=== PATIENT | female | born 1980 | race Hispanic/Latino ===

== ENCOUNTER 2019-09-05 00:14 | Emergency (ER) | payer OTHER ==
[2019-09-05 00:58] LABS: Absolute Lymphocytes (CBC) 3.5 K/uL (0.7-4.9); Basophils % 0.5 % (0-1.3); Hematocrit 41.6 % (36.0-45.0); Lymphocytes % 34.4 % (15.3-44.8); MPV 8.2 fL (7.6-11.3); RBC Red Blood Cell Count 4.94 M/uL (3.86-4.86)
[2019-09-05 01:15] LABS: ALT/SGPT 20 U/L (12-78); AST/SGOT 12 U/L (15-37); Albumin 3.7 g/dL (3.4-5.0); Alkaline Phosphatase 67 U/L (45-117); BUN Blood Urea Nitrogen 14 mg/dL (7-18); Bicarbonate 23 mmol/L (21-32); Bilirubin Direct < 0.1 mg/dL (0-0.2); Bilirubin Total 0.2 mg/dL (0.2-1.0); Glucose Level 98 mg/dL (74-106); Lipase 130 U/L (73-393); Potassium 3.7 mmol/L (3.5-5.1); Protein, Total 7.8 g/dL (6.4-8.2); Sodium Level 138 mmol/L (136-145)
[2019-09-05] MEDS ORDERED: MAGNE/ALUM HYDROXD 30 ML UCUP ONE (01:32)
[2019-09-05] MEDS ORDERED: PANTOPRAZOLE 40 MG INJ ONE (01:33)
[2019-09-05] MEDS ORDERED: LIDOCAINE VISCOUS 2% SOLN 15 ML UDC ONE (01:33)
--- NOTE | 2019-09-05 01:46 | EDPHYS ---
Physician Documentation [facility] Name: Joanna Tidwell Age: 39 yrs Sex: Female : 1980 Arrival Date: 09/05/2019 Time: 00:17 Bed 8 Private MD: ED Physician Vivek Arechiga HPI: 09/05 01:38 This 39 yrs old Female presents to ER via Ambulatory with complaints of kb Abdominal Pain. 01:38 The patient presents with abdominal pain in the epigastric area. Onset: The kb symptoms/episode began/occurred today. The symptoms do not radiate. Associated signs and symptoms: none. The symptoms are described as constant. Modifying factors: The symptoms are alleviated by nothing, the symptoms are aggravated by spicy food. Severity of pain: At its worst the pain was moderate in the emergency department the pain is unchanged. The patient has experienced similar episodes in the past, several times. The patient has been recently seen by a physician:. Pt reports she has had epigastric pain that started today after eating salsa at [employer]. Reports she has had this pain multiple times in the past. Recently completed treatment for H. Pylori (on Sunday). States the pain has been less frequent since she started the medication, but she hasn't been eating at night and has been staying away from spicy foods until today. . 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 - Social history:: Smoking status: Patient denies any tobacco usage or history of. ROS: 01:37 Constitutional: Negative for fever, chills, and weight loss, Neck: Negative for injury, kb pain, and swelling, Cardiovascular: Negative for chest pain, palpitations, and edema, Respiratory: Negative for shortness of breath, cough, wheezing, and pleuritic chest pain, Back: Negative for injury and pain, MS/Extremity: Negative for injury and deformity, Skin: Negative for injury, rash, and discoloration, Neuro: Negative for headache, weakness, numbness, tingling, and seizure. 01:37 Abdomen/GI: Positive for abdominal pain, Negative for nausea, vomiting, and diarrhea. Exam: 01:37 Constitutional: This is a well developed, well nourished patient who is awake, alert, kb and in no acute distress. Head/Face: Normocephalic, atraumatic. Neck: Trachea midline, no thyromegaly or masses palpated, and no cervical lymphadenopathy. Supple, full range of motion without nuchal rigidity, or vertebral point tenderness. No Meningismus. Chest/axilla: Normal chest wall appearance and motion. Nontender with no deformity. No lesions are appreciated. Cardiovascular: Regular rate and rhythm with a normal S1 and S2. No gallops, murmurs, or rubs. Normal PMI, no JVD. No pulse deficits. Respiratory: Lungs have equal breath sounds bilaterally, clear to auscultation and percussion. No rales, rhonchi or wheezes noted. No increased work of breathing, no retractions or nasal flaring. Abdomen/GI: Soft, non-tender, with normal bowel sounds. No distension or tympany. No guarding or rebound. No evidence of tenderness throughout. Skin: Warm, dry with normal turgor. Normal color with no rashes, no lesions, and no evidence of cellulitis. MS/ Extremity: Pulses equal, no cyanosis. Neurovascular intact. Full, normal range of motion. Neuro: Awake and alert, GCS 15, oriented to person, place, time, and situation. Cranial nerves II-XII grossly intact. Motor strength 5/5 in all extremities. Sensory grossly intact. Cerebellar exam normal. Normal gait. Vital Signs: 00:23 BP 112 / 76; Pulse 92; Resp 18 S; Pulse Ox 99% on R/A; Weight 54.43 kg (R); Height 5 sg ft. 0 in. (152.40 cm) (R); Pain 6/10; 01:00 BP 141 / 92; Pulse 81; Resp 17; Pulse Ox 97% on R/A; rv 02:00 BP 122 / 89; Pulse 86; Resp 16; Pulse Ox 97% on R/A; Pain 0/10; rv 02:04 Pain 0/10; rv 02:45 BP 105 / 70; Pulse 75; Resp 16; Temp 97.6; Pulse Ox 99% ; Pain 4/10; rr5 03:20 BP 110 / 69; Pulse 70; Resp 17; Pulse Ox 98% ; Pain 0/10; rr5 04:00 BP 115 / 76; Pulse 69; Resp 16; Temp 97.5; Pulse Ox 99% ; Pain 0/10; rr5 00:23 Body Mass Index 23.44 (54.43 kg, 152.40 cm) sg MDM: 00:17 Patient medically screened. kb 01:37 Data reviewed: vital signs, nurses notes. Data interpreted: Pulse oximetry: on room air kb is 99 %. Interpretation: normal. 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 09/05 00:39 Order name: Basic Metabolic Panel; Complete Time: 01:22 kb 09/05 00:39 Order name: CBC with Diff; Complete Time: 01:08 kb 09/05 00:39 Order name: Hepatic Function; Complete Time: 01:22 kb 09/05 00:39 Order name: Lipase; Complete Time: 01:22 kb 09/05 02:58 Order name: Urine Dipstick--Ancillary (enter results); Complete Time: 03:50 mw2 09/05 02:58 Order name: Urine --Ancillary (enter results); Complete Time: 03:50 mw2 09/05 00:39 Order name: IV Saline Lock; Complete Time: 00:53 kb 09/05 02:41 Order name: CT Abd/Pelvis - IV Contrast Only rr5 09/05 00:39 Order name: Labs collected and sent; Complete Time: 00:53 kb 09/05 02:51 Order name: Urine Dipstick-Ancillary (obtain specimen); Complete Time: 02:52 rr5 09/05 02:51 Order name: Urine Test (obtain specimen); Complete Time: 02:51 rr5 Administered Medications: 01:33 Drug: GI Cocktail without - (Maalox Suspension 30 ml, Lidocaine Liquid 2 % 15 rr5 ml) Route: PO; 02:04 Follow up: Response: No adverse reaction rv 01:33 Drug: ProTONIX 40 mg Route: IVP; Site: right antecubital; rr5 02:04 Follow up: Response: No adverse reaction rv 01:50 Drug: morphine 4 mg {Note: RASS 0.} Route: IVP; Site: right antecubital; rv 02:04 Follow up: Pain 0/10 Adult; Response: No adverse reaction; Marked relief of symptoms; rv Pain is decreased; RASS: Alert and Calm (0) 01:50 Drug: Zofran (Ondansetron) 4 mg Route: IVP; Site: right antecubital; rv 02:05 Follow up: Response: No adverse reaction rv 02:51 Drug: NS 0.9% 500 ml Route: IV; Rate: bolus; Site: left antecubital; rr5 03:30 Follow up: Response: No adverse reaction; IV Status: Completed infusion; IV Intake: rr5 500ml 02:51 Drug: TORadol 30 mg Route: IVP; Site: left antecubital; rr5 03:55 Follow up: Response: No adverse reaction; Marked relief of symptoms rr5 Disposition: 04:04 Co-signature as Attending Physician, Vivek Arechiga MD. lucero Disposition: 09/05/19 01:45 Discharged to Home. Impression: Epigastric pain. - Condition is Stable. - Discharge Instructions: Gastroesophageal Reflux Disease, Adult, [id number]. - Medication Reconciliation Form, Thank You Letter, Antibiotic Education, Prescription Opioid Use form. - Follow up: Emergency Department; When: As needed; Reason: Worsening of condition. Follow up: Private Physician; When: 2 - 3 days; Reason: Recheck today's complaints, Continuance of care, Re-evaluation by your physician. Signatures: Dispatcher [employer] Bernadine Matthews, MERCHANDISING LEAD-C MERCHANDISING LEAD-Colby Mueller RN Vivek Garcia MD MD pkl Spencer Scott RN RN Tony Kyle RN RN rr5 Corrections: (The following items were deleted from the chart) 02:06 01:45 09/05/2019 01:45 Discharged to Home. Impression: Epigastric pain. Condition is rv Stable. Forms are Medication Reconciliation Form, Thank You Letter, Antibiotic Education, Prescription Opioid Use. Follow up: Emergency Department; When: As needed; Reason: Worsening of condition. Follow up: Private Physician; When: 2 - 3 days; Reason: Recheck today's complaints, Continuance of care, Re-evaluation by your physician. kb 04:02 02:06 09/05/2019 01:45 Discharged to Home. Impression: Epigastric pain. Condition is rr5 Stable. Discharge Instructions: Gastroesophageal Reflux Disease, Adult, [id number]. Forms are Medication Reconciliation Form, Thank You Letter, Antibiotic Education, Prescription Opioid Use. Follow up: Emergency Department; When: As needed; Reason: Worsening of condition. Follow up: Private Physician; When: 2 - 3 days; Reason: Recheck today's complaints, Continuance of care, Re-evaluation by your physician. rv
--- NOTE | 2019-09-05 01:46 | ER ---
Nurse's Notes [facility] Name: Joanna Tidwell Age: 39 yrs Sex: Female : 1980 Arrival Date: 09/05/2019 Time: 00:17 Bed 8 Private MD: Diagnosis: Epigastric pain Presentation: 09/05 00:23 Chief complaint: Patient states: I just finished my abx of Clarithromycin and sg Amoxicillin for H.Pylori treatment, today I started having the pain in my epigastric area, denies N/V/D/Fever, reports having [employer] for lunch with salsa and a coffee this morning but nothing to eat or drink since lunch time, pt states able to hold down fluids and food at this time, just reports a decrease in appetite. Coronavirus screen: The patient has NOT traveled to [place] in the past 14 days. The patient has NOT had contact with known and/or suspected case of Coronavirus. Ebola Screen: Patient negative for fever greater than or equal to 101.5 degrees Fahrenheit, and additional compatible Ebola Virus Disease symptoms Patient denies exposure to infectious person. Patient denies travel to an Ebola-affected area in the 21 days before illness onset. No symptoms or risks identified at this time. Initial Sepsis Screen: Does the patient meet any 2 criteria? No. Patient's initial sepsis screen is negative. Does the patient have a suspected source of infection? Yes: Acute abdominal pain. Risk Assessment: Do you want to hurt yourself or someone else? Patient reports no desire to harm self or others. 00:23 Method Of Arrival: Ambulatory sg 00:23 Acuity: ABRAHAN 3 sg 00:30 Onset of symptoms was September 04, 2019. 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 - Social history:: Smoking status: Patient denies any tobacco usage or history of. Screenin:00 Abuse screen: Denies threats or abuse. Denies injuries from another. Nutritional rr5 screening: No deficits noted. Tuberculosis screening: No symptoms or risk factors identified. Fall Risk IV access (20 points). Total Crespo Fall Scale indicates No Risk (0-24 pts). Assessment: 00:30 General: Appears in no apparent distress. uncomfortable, Behavior is calm, cooperative, rr5 appropriate for age. 00:30 Pain: Complains of pain in abdomen Pain does not radiate. Pain currently is 7 out of 10 rr5 on a pain scale. Quality of pain is described as aching, Pain began gradually, Is intermittent. Neuro: Level of Consciousness is awake, alert, obeys commands, Oriented to person, place, time, situation. Cardiovascular: Capillary refill < 3 seconds Patient's skin is warm and dry. Respiratory: Airway is patent Respiratory effort is even, unlabored, Respiratory pattern is regular, symmetrical. GI: Abdomen is flat, Bowel sounds present X 4 quads. Abd is non tender Reports lower abdominal pain, upper abdominal pain. : No signs and/or symptoms were reported regarding the genitourinary system. EENT: No signs and/or symptoms were reported regarding the EENT system. Derm: Skin is intact, is healthy with good turgor, Skin temperature is warm. Musculoskeletal: Circulation, motion, and sensation intact. Capillary refill < 3 seconds. 02:00 Reassessment: Patient appears in no apparent distress at this time. Patient is alert, rr5 oriented x 3, equal unlabored respirations, skin warm/dry/pink. discharge instruction given and explained without complaints made. Patient denies pain at this time. Patient states feeling better. Patient states symptoms have improved. 02:26 Reassessment: Patient appears in no apparent distress at this time. patient came back rr5 complaining the pain came back. informed with order made and carried out. 03:17 Reassessment: Patient appears in no apparent distress at this time. Patient is alert, rr5 oriented x 3, equal unlabored respirations, skin warm/dry/pink. awaiting for CT result. 03:38 Reassessment: Patient appears in no apparent distress at this time. Patient is alert, rr5 oriented x 3, equal unlabored respirations, skin warm/dry/pink. Patient denies pain at this time. Patient states feeling better. Patient states symptoms have improved. 04:01 Reassessment: Patient appears in no apparent distress at this time. Patient is alert, rr5 oriented x 3, equal unlabored respirations, skin warm/dry/pink. ED provider at bedside explained the CT result and advised to follow up to her PCP and ultrasound. verbalized understanding. Patient denies pain at this time. Patient states feeling better. Patient states symptoms have improved. Vital Signs: 00:23 BP 112 / 76; Pulse 92; Resp 18 S; Pulse Ox 99% on R/A; Weight 54.43 kg (R); Height 5 sg ft. 0 in. (152.40 cm) (R); Pain 6/10; 01:00 BP 141 / 92; Pulse 81; Resp 17; Pulse Ox 97% on R/A; rv 02:00 BP 122 / 89; Pulse 86; Resp 16; Pulse Ox 97% on R/A; Pain 0/10; rv 02:04 Pain 0/10; rv 02:45 BP 105 / 70; Pulse 75; Resp 16; Temp 97.6; Pulse Ox 99% ; Pain 4/10; rr5 03:20 BP 110 / 69; Pulse 70; Resp 17; Pulse Ox 98% ; Pain 0/10; rr5 04:00 BP 115 / 76; Pulse 69; Resp 16; Temp 97.5; Pulse Ox 99% ; Pain 0/10; rr5 00:23 Body Mass Index 23.44 (54.43 kg, 152.40 cm) ED Course: 00:17 Patient arrived in ED. ag3 00:17 Bernadine Gary FNP-C is PHCP. kb 00:17 Vivek Arechiga MD is Attending Physician. kb 00:26 Triage completed. sg 00:26 Arm band placed on. EKG completed in triage. Results shown to MD. sg 00:30 Patient has correct armband on for positive identification. Bed in low position. Call rr5 light in reach. 00:36 Tony Bear, KASSIE is Primary Nurse. rr5 00:50 Initial lab(s) drawn, by me, sent to lab. Inserted saline lock: 22 gauge in right sg antecubital area, using aseptic technique. Blood collected. 02:00 No provider procedures requiring assistance completed. IV discontinued, intact, rr5 bleeding controlled, No redness/swelling at site. Pressure dressing applied. 02:14 PHCP role handed off by Abdirahman, Bernadine, BOILER OPERATOR HELPER-C rv 02:14 Primary Nurse role handed off by Tony Bear, RN rv 02:21 Tony Bear, RN is Primary Nurse. rr5 02:40 Inserted saline lock: 20 gauge in left antecubital area, using aseptic technique. rr5 03:19 CT Abd/Pelvis - IV Contrast Only In Process Unspecified. EDMS 04:02 IV discontinued, intact, bleeding controlled, No redness/swelling at site. Pressure rr5 dressing applied. Administered Medications: 01:33 Drug: GI Cocktail without - (Maalox Suspension 30 ml, Lidocaine Liquid 2 % 15 rr5 ml) Route: PO; 02:04 Follow up: Response: No adverse reaction rv 01:33 Drug: ProTONIX 40 mg Route: IVP; Site: right antecubital; rr5 02:04 Follow up: Response: No adverse reaction rv 01:50 Drug: morphine 4 mg {Note: RASS 0.} Route: IVP; Site: right antecubital; rv 02:04 Follow up: Pain 0/10 Adult; Response: No adverse reaction; Marked relief of symptoms; rv Pain is decreased; RASS: Alert and Calm (0) 01:50 Drug: Zofran (Ondansetron) 4 mg Route: IVP; Site: right antecubital; rv 02:05 Follow up: Response: No adverse reaction rv 02:51 Drug: NS 0.9% 500 ml Route: IV; Rate: bolus; Site: left antecubital; rr5 03:30 Follow up: Response: No adverse reaction; IV Status: Completed infusion; IV Intake: rr5 500ml 02:51 Drug: TORadol 30 mg Route: IVP; Site: left antecubital; rr5 03:55 Follow up: Response: No adverse reaction; Marked relief of symptoms rr5 Intake: 03:30 IV: 500ml; Total: 500ml. rr5 Outcome: 01:45 Discharge ordered by MD. whitmore 02:05 Discharged to home ambulatory, with family. rv 02:05 Condition: improved 02:05 Discharge instructions given to patient, family, Instructed on discharge instructions, follow up and referral plans. medication usage, Demonstrated understanding of instructions, follow-up care. 02:06 Patient left the ED. rv 04:01 Discharge instructions given to patient, family, Instructed on discharge instructions, rr5 follow up and referral plans. Demonstrated understanding of instructions, follow-up care. 04:02 Patient left the ED. rr5 Signatures: Dispatcher [employer] Bernadine Matthews, GURDEEP AVILES-Colby Mueller RN RN Spencer Montes De Oca RN RN Rosalina Morillo Raymond, RN RN rr5
[2019-09-05] MEDS ORDERED: ONDANSETRON 4 MG/2 ML VIAL ONE (01:53)
[2019-09-05] MEDS ORDERED: MORPHINE 4 MG/ML SYR ONE (01:53)
[2019-09-05] MEDS ORDERED: NA CHLORIDE 0.9% 500 ML ONE (02:44)
[2019-09-05] MEDS ORDERED: KETOROLAC 30 MG/ML INJ ONE (02:44)
[2019-09-05 03:08] LABS: Urine Blood 2+ (NEG); Urine Glucose NEGATIVE (NEG); Urine Protein NEGATIVE (NEG); Urine Specific Gravity 1.025 (1.005-1.030)
[2019-09-05 04:33] VITALS: BP 115/76; TEMP 97.5; O2SAT 99
--- NOTE | 2019-09-08 14:55 | RAD REPORT ---
EXAM DESCRIPTION: CT - Abdomen Pelvis W Contrast - 09/05/2019 6:36 am CLINICAL HISTORY: The patient is 39 years old and is Female; ABD PAIN TECHNIQUE: Axial computed tomography images of the abdomen and pelvis with intravenous contrast. S agittal and coronal reformatted images were created and reviewed. This CT exam was performed using one or more of the following dose reduction techniques: automated exposure control, adjustment of t he mA and/or kV according to patient size, and/or use of iterative reconstruction technique. COMPARISON: No relevant prior studies available. FINDINGS: LUNG BASES: Unremarkable. No mass. No consolidation. ABDOMEN: LIVER: Unremarkable. No mass. GALLBLADDER AND BILE DUCTS: The gallbladder is significantly distended. Suggestion of mild gallb ladder wall thickening is noted. No calcified gallstones are seen. PANCREAS: No ductal dilation. No mass. SPLEEN: Unremarkable. ADRENALS: Unremarkable. No mass. KIDNEYS AND URETERS: Unremarkable. The kidneys enhance symmetrically. No obstructing renal or ur eteral calculus is seen. No hydronephrosis or hydroureter. No perinephric fluid or stranding. STOMACH AND BOWEL: The stomach is moderately fluid-filled. The small bowel is normal in caliber. A moderate amount stool is present throughout the colon. There is no mucosal thickening or evidence of bowel obstruction. PELVIS: APPENDIX: The appendix is normal in caliber without surrounding inflammation. BLADDER: The bladder is not well distended. REPRODUCTIVE: 2 left ovarian cyst are present, largest measures 2.0 cm. No follow-up imaging is recommended. The uterus and right ovary are normal. ABDOMEN and PELVIS: INTRAPERITONEAL SPACE: Unremarkable. No free air. No significant fluid collection. BONES/JOINTS: No acute fracture. SOFT TISSUES: The soft tissues are normal. VASCULATURE: Unremarkable. No abdominal aortic aneurysm. LYMPH NODES: Unremarkable. No enlarged lymph nodes. IMPRESSION: Distended gallbladder. No calcified gallstones. If there is clinical concern for acute g allbladder pathology, findings could be further evaluated with ultrasound or HIDA scan. Electronically signed by: Bryanna Calvert MD 09/05/2019 3:49 AM APPLICATIONS CHEMIST Due to temporary technical issues with the PACS/Fluency reporting system, reports are being signed by the in house radiologist as a courtesy to ensure prompt reporting. The interpreting radiologist is f monaly responsible for the content of the report.
== END 2019-09-05 04:02 | disposition home or self-care (01) ==
LOC: ER 00:14
DX: R10.13 Epigastric pain (principal)
CPT/HCPCS: 96361; 85025; 80048; 36415; 81025; 80076; 81003; 83690; 74177; 96375; 96374; 99284; Q9967; C9113; J7040; J2405

== ENCOUNTER 2025-02-25 07:35 | Day surgery (SDC) | payer OTHER ==
[2025-02-23 15:44] LABS: Absolute Lymphocytes (CBC) 2.6 K/uL (0.7-4.9); Hematocrit 41.7 % (36.0-45.0); Hemoglobin 14.1 g/dL (12.0-15.0); MCH 28.4 pg (27.0-35.0); MCHC 33.9 g/dL (32.0-36.0); MCV 83.7 fL (80-100); MPV 8.0 fL (7.6-11.3); Nucleated RBC Absolute Count 0.0 (0-0); Nucleated Red Blood Cells % 0.1 % (0-0); RBC Red Blood Cell Count 4.98 M/uL (3.86-4.86); White Blood Count 7.50 thou/uL (4.3-10.9)
--- NOTE | 2025-02-23 15:46 | RAD REPORT ---
Procedure: Chest Pa And Lat (2 Views) HISTORY: Preop for breast surgery COMPARISON: none FINDINGS: The lungs appear clear of acute infiltrate. No significant pleural effusion noted. The heart is normal size. IMPRESSION: No acute abnormality is displayed.
[2025-02-23 15:54] LABS: Anion Gap 9.8 mEq/L (5.0-15.0); BUN Blood Urea Nitrogen 12.0 mg/dL (7-18); Glucose Level 102.0 mg/dL (74-106); Potassium 3.8 mEq/L (3.5-5.1)
[2025-02-25] MEDS: Ringers Lactate 1,000 ML IV ONE (07:55)
[2025-02-25] MEDS ORDERED: LIDOCAINE 2% MPF 5 ML VIAL ONE (09:38)
[2025-02-25] MEDS ORDERED: ONDANSETRON 4 MG/2 ML VIAL ONE (09:38)
[2025-02-25] MEDS ORDERED: MIDAZOLAM HCL 2 MG/2 ML INJ ONE (09:38)
[2025-02-25] MEDS ORDERED: FENTANYL CITR 100 MCG/2 ML ONE (09:38)
[2025-02-25] MEDS ORDERED: KETOROLAC 30 MG/ML INJ ONE (09:38)
[2025-02-25] MEDS ORDERED: METHYLENE BLUE 1% 10 ML VIAL ONE (09:40)
[2025-02-25] MEDS: CEFAZOLIN SODIUM 2 GM/VIAL ONE (10:16)
[2025-02-25 11:55] VITALS: O2SAT 100
--- NOTE | 2025-02-25 12:51 | RAD REPORT ---
Brst,Preop NL Wire Init w/Guid CLINICAL INDICATION: Female 44 years old. NEEDLE LOC INFORMED CONSENT: The risk, benefits, alternatives and potential complications of sonographically marbella ded breast needle localization were discussed with the patient. An informed consent sheer was signed. The risks include but are not limited to the following: bleeding, infection, vascular injury, organ injury, pneumothorax, allergic reaction, and the need for emergent surgery/procedures, needle dislocation. [id number]. SEDATION: None. LOCALIZATION SITE: Previously biopsied right breast lesion in the upper outer quadrant. WIRE: Clean [employer] 6 cm wire needle localization device, Lateral approach. COMPLICATION: None. FINDINGS: Appropriate audible time out was performed. The skin was prepped in the normal fashion. The soft tissues were anesthetized with lidocaine. Utilizing ultrasound guidance, a localization device was placed into the location described above. The localization device was deposited at the ryan ropriate site in the Right breast as described above. Dressing was applied after the procedure. The patient tolerated the procedure well without immediate complication. IMPRESSION: Successful placement of Right breast localizer device as described above. Specimen radiograph is rec ommended
[2025-02-25 13:26] VITALS: BP 119/65; TEMP 97.2
--- NOTE | 2025-02-25 14:51 | OP ---
Date of Procedure: 02/25/2025 Surgeon: Sadiq Martin MD Preoperative Diagnosis: Right breast mass. Postoperative Diagnosis: Right breast mass. Procedure: Right breast lumpectomy, needle localized. Anesthesia: General plus local. Estimated Blood Loss: Less than 10 cc. Specimen: A lesion within the specimen per Dr. Mariee. Indications: This is a case of a 44-year-old patient who came to us with a breast mass which gave he r some pain, discomfort. It is increasing in size. She wants that excised. The benefits, alternati ves, and risks of the right breast lumpectomy, needle localized fully explained, which include, but n ot limited to, infection, bleeding, damage to adjacent structures, anesthesia complication, WI, and e seven . She also understands this might not relieve any symptoms, she might need more than one cobb rgical intervention. She understood, signed a consent. Description Of Procedure: Patient went this morning to have a localization of the lesion by Dr. Mariee. Then, after that, brought to the operating room, making sure that wire is secured at all times, so it was moved out. Then we brought the patient to the operating room, placed in supine position. Ane sthesia was induced without complication. Right breast was prepped and draped in the usual sterile f ashion making sure we keep the wire intact. After time-out, we proceeded to make a curvilinear incis ion on the area of concern. Incision was carried down to breast tissue. The Allis was placed to sec ure the breast tissue to the wire and then we removed the lump around the area. This goes all the wa y down to muscle, although it does not penetrate the muscle. Area was irrigated. Hemostasis was obt ained. Dr. Mariee stated that the lesion and clips are within the specimen. After hemostasis was obtai vijay, we proceeded to close the subcutaneous a little bit with 3-0 chromic and then a 4-0 PDS subcutic ular. No bleeding. Local anesthesia was injected before closure and Steri-Strips placed over the ar ea. Patient tolerated the procedure well. Patient was sent to recovery in stable condition. DAGO/LIV Voice ID: [id number] Report ID: [id number]
--- NOTE | 2025-02-25 14:55 | DS ---
Date of Discharge: 02/25/2025 Diagnosis: Right breast mass. Procedure: Right breast lumpectomy, needle localized. Condition: Stable. Disposition: Home. Activity: As tolerated. No heavy lifting. Discharge Instructions: Follow up in my office in 1 week. Call for appointment at [phone]. The mariano myers advised to keep the area dry for 48 hours, then may shower. Keep Steri-Strip intact and use br east support. DAGO/LIV Voice ID: [id number] Report ID: [id number]
--- NOTE | 2025-03-06 16:25 | RAD REPORT ---
EXAM: CATIE BREAST TISSUE SAMPLE CLINICAL HISTORY: S/P LUMPECTOMY TECHNIQUE: Mammography of the resected breast tissue obtained. FINDINGS: The suspicious mass with wire and biopsy clip are present within the resected breast specimen. The ma ss is present at the C5/6 and D5/6 on the grid. Findings were discussed with Dr. Martin at time of surgery. BI-RADS 4 - Suspicious finding BI-RADS 4 -- suspicious abnormality, biopsy recommended
== END 2025-02-25 13:14 | disposition home or self-care (01) ==
LOC: OR 07:35
PROVIDERS: ATTEND Surgery
PROC: 0HBT0ZZ Excision of Right Breast, Open Approach (ICD-10-PCS; principal; 2025-02-25 10:15)
DX: N60.41 Mammary duct ectasia of right breast (principal); N63.11 Unspecified lump in the right breast, upper outer quadrant
CPT/HCPCS: 19301; 85025; 80048; 36415; 88305; 71046; 76098; 19285; J2704; J2003; J2250; J3010; J1100; J2405; J7120; 88307